=== PATIENT | male | born 1965 ===

== ENCOUNTER 2022-11-16 09:47 | Day surgery (SDC) | payer OTHER ==
[~2022-11-16] VITALS: Ht 170.2 cm; Wt 65.8 kg
[2022-11-16] MEDS ORDERED: fentaNYL citrate 0.05 MG/ML VIAL ONE (10:28)
[2022-11-16] MEDS ORDERED: MIDAZOLAM 5 MG/5 ML VIAL ONE (10:28)
[2022-11-16] MEDS ORDERED: diphenhydrAMINE 50 MG/ML VIAL ONE (10:28)
[2022-11-16] MEDS ORDERED: LIDOCAINE 2% 100 MG/5 ML UJET TP ONE (10:29)
[2022-11-16] MEDS ORDERED: MIDAZOLAM 5 MG/5 ML VIAL IV ONE (11:40)
[2022-11-16] MEDS ORDERED: fentaNYL citrate 0.05 MG/ML VIAL IVP ONE (11:40)
== END 2022-11-16 12:03 | disposition home or self-care (01) ==
LOC: MDS 09:47 → MMU 09:48 → MDS 12:03
PROVIDERS: ATTEND Internal Medicine Gastroenterology
DX: Z12.11 Encounter for screening for malignant neoplasm of colon (principal); K57.30 Diverticulosis of large intestine without perforation or abscess without bleeding; I10 Essential (primary) hypertension; E11.9 Type 2 diabetes mellitus without complications; K21.9 Gastro-esophageal reflux disease without esophagitis; E78.00 Pure hypercholesterolemia, unspecified; Z79.4 Long term (current) use of insulin; Z79.899 Other long term (current) drug therapy; Z20.822 Contact with and (suspected) exposure to COVID-19
CPT/HCPCS: 45378; 87426; J2250; J3010; 82948; J1200